=== PATIENT | male | born 1985 | race African-American/Black ===

== ENCOUNTER 2017-07-19 13:13 | Inpatient (IN) | payer OTHER ==
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
[2017-07-19] MEDS ORDERED: guaiFENesin/D-METHORPHAN HB 10 ML UNIT-DOSE CUPS PO PRN (20:10)
[2017-07-19] MEDS ORDERED: ACETAMINOPHEN 325 MG TABLET (FP) PO PRN (20:10)
[2017-07-19] MEDS ORDERED: MAGNESIUM HYDROX 2400MG/30ML ORAL SUSPENSION 30 ML CUP PO PRN (20:10)
[2017-07-19] MEDS ORDERED: MENTHOL/PHENOL 1 EACH UD MM PRN (20:10)
[2017-07-19] MEDS ORDERED: P-EPHED 60MG/TRIPROLIDI 2.5MG TABLET PO PRN (20:10)
[2017-07-19] MEDS ORDERED: MAG HYDROX/AL HYDROX/SIMETH 30 ML UNIT-DOSE CUP PO PRN (20:10)
[2017-07-19] MEDS ORDERED: MAGNESIUM CITRATE 300 ML BOTTLE PO PRN (20:10)
[2017-07-19] MEDS ORDERED: NICOTINE POLACRILEX 2 MG GUM BUC PRN (20:10)
[2017-07-19] MEDS ORDERED: IBUPROFEN 400 MG TABLET (FP) PO PRN (20:10)
[2017-07-19] MEDS ORDERED: LOPERAMIDE HCL 2 MG CAPSULE PO PRN (20:10)
[2017-07-19] MEDS: chlordiazePOXIDE HCL 25 MG CAPSULE PO PRN (20:38)
[2017-07-19] MEDS: THIAMINE HCL 100 MG TABLET (FP) PO SCH (22:19)
[2017-07-19] MEDS: chlordiazePOXIDE HCL 25 MG CAPSULE PO SCH (22:19)
[2017-07-20 00:34] LABS: URINE APPEARANCE CLEAR; URINE BILIRUBIN NEGATIVE (NEGATIVE); URINE BLOOD NEGATIVE (NEGATIVE); URINE COLOR STRAW; URINE GLUCOSE (UA) NEGATIVE (NEGATIVE); URINE KETONE NEGATIVE (NEGATIVE); URINE LEUK ESTERASE NEGATIVE (NEGATIVE); URINE NITRITE NEGATIVE (NEGATIVE); URINE PROTEIN NEGATIVE (NEGATIVE); URINE UROBILINOGEN NEGATIVE mg/dL (0.2-1.0)
[2017-07-20] MEDS: chlordiazePOXIDE HCL 25 MG CAPSULE PO SCH ×4 (05:07→22:06)
--- NOTE | 2017-07-20 09:27 | PN ---
BHS CIWA - CIWA Score Nausea/Vomitin-No Nausea/No Vomiting Muscle Tremors: 4-Moderate,w/Arms Extend Anxiety: 4-Mod. Anxious/Guarded Agitation: 4-Moderately Restless Paroxysmal Sweats: 1-Minimal Palms Moist Orientation: 0-Oriented Tacttile Disturbances: 1-Very Mild Itch/Numbness Auditory Disturbances: 0-None Visual Disturbances: 0-None Headache: 1-Very Mild CIWA-Ar Total Score: 15 BHS Progress Note (SOAP) Subjective: sweat tremor anxiety restlessness gi upset Objective: 07/20/17 09:40 Vital Signs Temperature 97.0 F L 07/20/17 06:00 Pulse Rate 74 07/20/17 06:00 Respiratory Rate 18 07/20/17 06:00 Blood Pressure 96/70 07/20/17 06:00 O2 Sat by Pulse Oximetry (%) Laboratory Last Values Urine Color Straw 07/20/17 00:01 Urine Appearance Clear 07/20/17 00:01 Urine pH 6.0 (5.0-8.0) 07/20/17 00:01 Ur Specific [place] 1.003 (1.001-1.035) 07/20/17 00:01 Urine Protein Negative (NEGATIVE) 07/20/17 00:01 Urine Glucose (UA) Negative (NEGATIVE) 07/20/17 00:01 Urine Ketones Negative (NEGATIVE) 07/20/17 00:01 Urine Blood Negative (NEGATIVE) 07/20/17 00:01 Urine Nitrite Negative (NEGATIVE) 07/20/17 00:01 Urine Bilirubin Negative (NEGATIVE) 07/20/17 00:01 Urine Urobilinogen Negative mg/dL (0.2-1.0) 07/20/17 00:01 Ur Leukocyte Esterase Negative (NEGATIVE) 07/20/17 00:01 lab noted Assessment: 07/20/17 09:40 withdrawal sx Plan: continue detox
[2017-07-20 10:13] LABS: HEMOGLOBIN 12.7 GM/dL (11.7-16.9); MCH 31.2 pg (25.7-33.7); MCHC 34.3 g/dl (32.0-35.9); MEAN CELL VOLUME 90.9 fl (80-96); MEAN PLT VOLUME 8.3 fl (7.5-11.1); PLATELET COUNT 295 K/MM3 (134-434); RBC 4.07 M/mm3 (4.00-5.60); RDW 14.4 % (11.9-15.9); WHITE BLOOD COUNT 6.1 K/mm3 (4.0-10.0)
[2017-07-20 10:16] LABS: CHLORIDE 107 mmol/L (98-107); SODIUM 140 mmol/L (136-145)
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
[2017-07-20 10:30] LABS: ALBUMIN 3.2 g/dl (3.4-5.0); ALK PHOS 60 U/L (45-117); ANION GAP 4 (8-16); BILIRUBIN,TOTAL 0.7 mg/dL (0.2-1.0); BLOOD UREA NITROGEN 12 mg/dL (7-18); CALCIUM 8.3 mg/dL (8.5-10.1); CO2 29 mmol/L (21-32); CREATININE 0.8 mg/dL (0.7-1.3); GLUCOSE,RANDOM 93 mg/dL (74-106); SGOT/AST 14 U/L (15-37); SGPT/ALT 20 U/L (12-78)
[2017-07-20] MEDS: PRENATAL VITAMINS W/ FOLIC ACID TABLET (FP) PO SCH (10:41)
[2017-07-20] MEDS: NICOTINE 14 MG/24 HOURS TOPICAL PATCH TD SCH (10:43)
--- NOTE | 2017-07-20 20:36 | EKG ---
Test Reason : Blood Pressure : / mmHG Vent. Rate : 106 BPM Atrial Rate : 106 BPM P-R Int : 142 ms QRS Dur : 088 ms QT Int : 330 ms P-R-T Axes : 069 055 060 degrees QTc Int : 438 ms SINUS TACHYCARDIA OTHERWISE NORMAL ECG NO PREVIOUS ECGS AVAILABLE Confirmed by MAURY REID MD ([id number]) on 07/20/2017 8:35:35 PM Referred By: Confirmed By:MAURY REID MD
[2017-07-20] MEDS: ZOLPIDEM TARTRATE 5 MG TABLET PO PRN (22:06)
[2017-07-20] MEDS: THIAMINE HCL 100 MG TABLET (FP) PO SCH (22:06)
[2017-07-21] MEDS: chlordiazePOXIDE HCL 25 MG CAPSULE PO SCH ×3 (05:07→17:30)
[2017-07-21] MEDS: PRENATAL VITAMINS W/ FOLIC ACID TABLET (FP) PO SCH (10:09)
[2017-07-21] MEDS: NICOTINE 14 MG/24 HOURS TOPICAL PATCH TD SCH (10:11)
--- NOTE | 2017-07-21 10:28 | PN ---
S CIWA - CIWA Score Nausea/Vomitin Muscle Tremors: 3 Anxiety: 3 Agitation: 3 Paroxysmal Sweats: 1-Minimal Palms Moist Orientation: 0-Oriented Tacttile Disturbances: 1-Very Mild Itch/Numbness Auditory Disturbances: 1-Very Mild Visual Disturbances: 0-None Headache: 2-Mild CIWA-Ar Total Score: 17 BHS Progress Note (SOAP) Subjective: ALERT,IRRITABLE,ANXIOUS,INTERRUPTED SLEEP,TREMOR,PAIN IN THE BODY Objective: 07/21/17 10:26 Vital Signs Temperature 97.5 F L 07/21/17 06:00 Pulse Rate 78 07/21/17 06:00 Respiratory Rate 18 07/21/17 06:00 Blood Pressure 151/81 07/21/17 06:00 O2 Sat by Pulse Oximetry (%) Assessment: 07/21/17 10:26 EKG SINUS TACHCARDIA 106/MIN NO CHEST PAIN,NO SOB Laboratory Last Values WBC 6.1 K/mm3 (4.0-10.0) 07/20/17 07:20 RBC 4.07 M/mm3 (4.00-5.60) 07/20/17 07:20 Hgb 12.7 GM/dL (11.7-16.9) D 07/20/17 07:20 Hct 37.0 % (35.4-49) D 07/20/17 07:20 MCV 90.9 fl (80-96) 07/20/17 07:20 MCH 31.2 pg (25.7-33.7) 07/20/17 07:20 MCHC 34.3 g/dl (32.0-35.9) 07/20/17 07:20 RDW 14.4 % (11.9-15.9) 07/20/17 07:20 Plt Count 295 K/MM3 (134-434) 07/20/17 07:20 MPV 8.3 fl (7.5-11.1) 07/20/17 07:20 Sodium 140 mmol/L (136-145) 07/20/17 07:20 Potassium 4.0 mmol/L (3.5-5.1) 07/20/17 07:20 Chloride 107 mmol/L (98-107) 07/20/17 07:20 Carbon Dioxide 29 mmol/L (21-32) 07/20/17 07:20 Anion Gap 4 (8-16) L 07/20/17 07:20 BUN 12 mg/dL (7-18) 07/20/17 07:20 Creatinine 0.8 mg/dL (0.7-1.3) 07/20/17 07:20 Creat Clearance w eGFR > 60 (>60) 07/20/17 07:20 Random Glucose 93 mg/dL (74-106) 07/20/17 07:20 Calcium 8.3 mg/dL (8.5-10.1) L 07/20/17 07:20 Total Bilirubin 0.7 mg/dL (0.2-1.0) 07/20/17 07:20 AST 14 U/L (15-37) L D 07/20/17 07:20 ALT 20 U/L (12-78) D 07/20/17 07:20 Alkaline Phosphatase 60 U/L (45-117) 07/20/17 07:20 Total Protein 6.0 g/dl (6.4-8.2) L 07/20/17 07:20 Albumin 3.2 g/dl (3.4-5.0) L 07/20/17 07:20 Urine Color Straw 07/20/17 00:01 Urine Appearance Clear 07/20/17 00:01 Urine pH 6.0 (5.0-8.0) 07/20/17 00:01 Ur Specific [place] 1.003 (1.001-1.035) 07/20/17 00:01 Urine Protein Negative (NEGATIVE) 07/20/17 00:01 Urine Glucose (UA) Negative (NEGATIVE) 07/20/17 00:01 Urine Ketones Negative (NEGATIVE) 07/20/17 00:01 Urine Blood Negative (NEGATIVE) 07/20/17 00:01 Urine Nitrite Negative (NEGATIVE) 07/20/17 00:01 Urine Bilirubin Negative (NEGATIVE) 07/20/17 00:01 Urine Urobilinogen Negative mg/dL (0.2-1.0) 07/20/17 00:01 Ur Leukocyte Esterase Negative (NEGATIVE) 07/20/17 00:01 RPR Titer Nonreactive (NONREACTIVE) 07/20/17 07:20 ,NO DIZZINESS Plan: CONTINUE DETOX
[2017-07-21] MEDS: chlordiazePOXIDE HCL 25 MG CAPSULE PO PRN ×2 (12:51→19:54)
[2017-07-21] MEDS: THIAMINE HCL 100 MG TABLET (FP) PO SCH (22:22)
[2017-07-21] MEDS: ZOLPIDEM TARTRATE 5 MG TABLET PO PRN (22:23)
[2017-07-21] MEDS: chlordiazePOXIDE 5 MG CAPSULE PO SCH (22:23)
[2017-07-22] MEDS: chlordiazePOXIDE 5 MG CAPSULE PO SCH ×3 (05:20→18:09)
--- NOTE | 2017-07-22 09:45 | PN ---
S Progress Note (SOAP) Subjective: ALERT,IRRITABLE,ANXIOUS,INTERRUPTED SLEEP Objective: 07/22/17 09:45 Vital Signs Temperature 97.1 F L 07/22/17 06:06 Pulse Rate 81 07/22/17 06:06 Respiratory Rate 18 07/22/17 06:06 Blood Pressure 136/79 07/22/17 06:06 O2 Sat by Pulse Oximetry (%) Assessment: 07/22/17 09:45 WITHDRAWAL SYMPTOM Plan: CONTINUE DETOX,DISCHARGE IN AM
[2017-07-22] MEDS: PRENATAL VITAMINS W/ FOLIC ACID TABLET (FP) PO SCH (10:28)
[2017-07-22] MEDS: NICOTINE 14 MG/24 HOURS TOPICAL PATCH TD SCH (10:30)
[2017-07-22] MEDS: chlordiazePOXIDE HCL 25 MG CAPSULE PO PRN (12:09)
[2017-07-22] MEDS: chlordiazePOXIDE HCL 10 MG CAPSULE PO SCH (22:03)
[2017-07-22] MEDS: ZOLPIDEM TARTRATE 5 MG TABLET PO PRN (22:03)
[2017-07-22] MEDS: THIAMINE HCL 100 MG TABLET (FP) PO SCH (22:04)
[2017-07-23] MEDS: chlordiazePOXIDE HCL 10 MG CAPSULE PO SCH ×2 (05:18→10:44)
--- NOTE | 2017-07-23 09:18 | PN ---
S Progress Note (SOAP) Subjective: ALERT,NO COMPLAINT Objective: 07/23/17 09:17 Vital Signs Temperature 97.0 F L 07/23/17 06:05 Pulse Rate 86 07/23/17 06:05 Respiratory Rate 18 07/23/17 06:05 Blood Pressure 128/63 07/23/17 06:05 O2 Sat by Pulse Oximetry (%) Assessment: 07/23/17 09:17 DETOX COMPLETED,NO WITHDRAWAL SYMPTOM Plan: DISCHARGE TODAY,FOLLOW UP WITH [facility] AFTER CARE PROGRAM ARRANGEMENT
--- NOTE | 2017-07-23 09:23 | DS ---
[facility] Detox Discharge Summary Admission Date: 07/19/17 Discharge Date: 07/23/17 - History Present History: Alcohol Dependence, Cocaine Dependence Additional Comments: FOLLOW UP WITH AFTER CARE PROGRAM [facility] ARRANGEMENT Pertinent Past History: SYNCOPE NICOTINE DEPENDENCE HYPERTENSION SUBSTANCE INDUCED MOOD DISORDER SUBSTANCE INDUCED SLEEP DISORDER - Physical Exam Results Vital Signs: Vital Signs Temperature 97.0 F L 07/23/17 06:05 Pulse Rate 86 07/23/17 06:05 Respiratory Rate 18 07/23/17 06:05 Blood Pressure 128/63 07/23/17 06:05 O2 Sat by Pulse Oximetry (%) Pertinent Admission Physical Exam Findings: WITHDRAWAL SIGNS AND SYMPTOM - Treatment Hospital Course: Detox Protocol Followed, Detoxed Safely, Responded well, Discharged Condition Good, Rehab Referral Accepted Patient has Accepted a Rehab Referral to: [facility] - Medication Discharge Medications: Ambulatory Orders NK [No Known Home Medication] 07/19/17 - Diagnosis (1) Alcohol dependence with uncomplicated withdrawal Current Visit: Yes Status: Acute (2) Cocaine dependence Current Visit: Yes Status: Acute (3) Substance induced mood disorder Current Visit: Yes Status: Acute (4) Substance-induced sleep disorder Current Visit: Yes Status: Acute (5) Nicotine dependence Current Visit: Yes Status: Chronic (6) Essential hypertension Current Visit: No Status: Acute (7) Syncope Current Visit: No Status: Suspected - AMA Did Patient Leave Against Medical Advice: No
[2017-07-23 10:19] VITALS: BP 148/78; PULSE 88; TEMP 97.5
[2017-07-23] MEDS: NICOTINE 14 MG/24 HOURS TOPICAL PATCH TD SCH (10:44)
[2017-07-23] MEDS: PRENATAL VITAMINS W/ FOLIC ACID TABLET (FP) PO SCH (10:44)
== END 2017-07-23 11:45 | disposition other institution (70) | DRG 774 ==
LOC: YASAS 13:13 → Y6N 19:11
PROVIDERS: ADMIT Internal Medicine; ATTEND Internal Medicine
PROC: HZ2ZZZZ Detoxification Services for Substance Abuse Treatment (ICD-10-PCS; principal; 2017-07-19)
DX: F10.230 Alcohol dependence with withdrawal, uncomplicated (principal); F14.20 Cocaine dependence, uncomplicated; F17.210 Nicotine dependence, cigarettes, uncomplicated; F19.24 Other psychoactive substance dependence with psychoactive substance-induced mood disorder; F19.282 Other psychoactive substance dependence with psychoactive substance-induced sleep disorder; F32.9 Major depressive disorder, single episode, unspecified; I10 Essential (primary) hypertension; R00.0 Tachycardia, unspecified; Z86.79 Personal history of other diseases of the circulatory system
CPT/HCPCS: 36415; 80053; 81003; 85027; 86593; 93005; 93010